=== PATIENT | male | born 1975 | race Caucasian/White ===

== ENCOUNTER 2020-02-11 08:36 | Outpatient (CLI) | payer OTHER, SELFPAY ==
--- NOTE | ~2020-02-11 | XR_ITS ---
EXAMINATION: XR wrist RT min 3V DATE: 02/11/2020 08:54 INDICATION: Right wrist pain. TECHNIQUE: 3 views of right wrist were obtained. COMPARISON: None. FINDINGS: Bone alignment is normal. No fracture. Joint spaces are well maintained. IMPRESSION: 1. Normal right wrist. Reviewed, dictated and finalized at location B. INE PRINTER IMPRESSION: 1. Normal right wrist.
== END 2020-02-11 08:37 | disposition home or self-care (01) ==
LOC: CHSLAB 08:37
PROVIDERS: PCP Family Medicine; Visit Provider Orthopaedic Surgery
DX: M25.531 Pain in right wrist (principal)
CPT/HCPCS: 73110

== ENCOUNTER 2020-02-20 07:22 | Outpatient (CLI) | payer OTHER, SELFPAY ==
--- NOTE | ~2020-02-20 | MR_ITS ---
EXAMINATION: MR wrist RT wo/w con DATE: 02/20/2020 08:48 INDICATION: Painful lump at the volar/radial aspect of the right wrist. TECHNIQUE: Magnetic resonance imaging (MRI) of the right wrist was performed without intravenous cont rast. Sequences performed include axial, sagittal and coronal T1-weighted FSE and T2-weighted FS FSE, axial T1-weighted FS FSE and postcontrast axial and coronal T1-weighted FS FSE. COMPARISON: None FINDINGS: Intrinsic ligaments: The scapholunate and lunotriquetral ligaments are normal. Triangular fibrocartilage complex (TFCC): The triangular fibrocartilage including its foveal and styloid attachments as well as the dorsal and volar radioulnar ligaments are normal. The ulnar collateral ligament, ulnotriquetral ligament and men iscal homologue are normal. The extensor carpi ulnaris tendon sheath is normal. Extensor wrist: Mild tendinopathy and longitudinal split tearing of the extensor carpi ulnaris tendon at the level of the ECU groove. Extensor tendons of the wrist are otherwise normal. No tenosynovitis. Flexor wrist: The flexor tendons of the wrist are normal. No abnormality in the carpal tunnel with normal median n erve. Guyon's canal: Guyon's canal including the ulnar nerve and artery are normal. Bones/other: Normal marrow signal. No fracture, erosions, avascular necrosis or abnormal marrow replacing process. Mild osteoarthritis at the triscaphe joint. There is somewhat tetrahedral shaped lobular fluid colle ction likely a ganglion cyst situated between the radial margin of the scaphoid, the distal palmar ma rgin of the radial styloid process, the extensor tendons of the first dorsal compartment and the flex or carpi radialis tendon. The lesion measures approximately 2.4 cm proximal to distal, 2.0 cm dorsal palmar and 1.5 cm medial collateral with thin peripheral rim of enhancing synovitis and with at least 5 ovoid low signal intensity likely noncalcified loose bodies, the largest measuring up to 9 x 5 mm. No other abnormally enhancing lesions identified. IMPRESSION: 1. Several noncalcified loose bodies within a 2.4 x 2.0 x 1.5 cm ganglion cyst at the palmar/radial a spect of the wrist. Reviewed, dictated and finalized at location H. OUND WORKER IMPRESSION: 1. Several noncalcified loose bodies within a 2.4 x 2.0 x 1.5 cm ganglion cyst at the palmar/radial aspect of the wrist.
== END 2020-02-20 07:23 | disposition home or self-care (01) ==
PROVIDERS: PCP Family Medicine; Visit Provider Orthopaedic Surgery
DX: R22.31 Localized swelling, mass and lump, right upper limb (principal)
CPT/HCPCS: 73223; A9577

== ENCOUNTER 2020-03-01 01:00 | Outpatient (CLI) | payer OTHER, SELFPAY ==
[2020-03-01 18:31] LABS: SARS-CoV-2 RNA PCR Negative
== END 2020-03-01 01:01 | disposition home or self-care (01) ==
LOC: ANHCOVIDDT 01:01
PROVIDERS: PCP Family Medicine; Visit Provider Orthopaedic Surgery
DX: Z01.812 Encounter for preprocedural laboratory examination (principal); Z20.828 Contact with and (suspected) exposure to other viral communicable diseases
CPT/HCPCS: 87635; C9803; U0003

== ENCOUNTER 2020-03-03 15:11 | Outpatient (CLI) | payer OTHER, SELFPAY ==
--- NOTE | 2020-03-03 15:14 | ECG_ITS ---
Measurements Intervals [place] Rate: 77 P: 44 WI: 136 QRS: 26 QRSD: 93 T: 33 QT: 342 QTc: 389 Interpretive Statements SINUS RHYTHM VOLTAGE CRITERIA FOR LVH BORDERLINE ECG Electronically Signed On 03-03-2020 15:35:21 MEDIA SPECIALIST by Alexandro Valdes D.O.
== END 2020-03-03 15:12 | disposition home or self-care (01) ==
LOC: ANHSURGERY 15:14
PROVIDERS: PCP Family Medicine; Visit Provider Orthopaedic Surgery
DX: Z01.810 Encounter for preprocedural cardiovascular examination (principal); E78.00 Pure hypercholesterolemia, unspecified
CPT/HCPCS: 93005

== ENCOUNTER 2020-03-05 02:21 | Day surgery (SDC) | payer OTHER, SELFPAY ==
[2020-03-03 08:34] VITALS: BMI 34.8
--- NOTE | 2020-03-03 12:24 | PM.IMHP ---
H&P: HPI History of Present Illness Date/Time: 03/03/20 12:24 Chief complaint: Ganglion Cyst Right Wrist Narrative: Julio César Grijalva is a 44 year old male with mass right wrist. Previously excised has now returned. Painful with use. MRI shows cyst with loose bodies. Review of Systems Constitutional: Constitutional: Denies fever(s) Eyes: Eyes: Denies blurry vision ENT: Reports Normal hearing present Cardiovascular: Cardiovascular: Denies chest pain and Denies dyspnea Respiratory: Respiratory: Denies dyspnea and Denies wheezing Gastrointestinal: Gastrointestinal: Denies abdominal pain Genitourinary: Genitourinary: Denies urinary urgency Musculoskeletal: Musculoskeletal: Reports as per HPI and Denies numbness Integumentary/Breasts: Skin/Breast: Denies changing lesions and Denies sores Neurologic: Reports Normal hearing present, Denies behavioral changes, Denies confusion, Denies numbness and Denies convulsions Psychiatric: Psychiatric: Denies behavioral changes, Denies confusion and Denies hallucinations Endocrine: Endocrine: Denies heat intolerance Hematologic/Lymphatic: Hematologic/Lymphatic: Denies easy bleeding Allergic/Immunologic: Allergic/Immunologic: Denies wheezing PMFSH Past Medical History Medical History Mass of right wrist Social History Social History Smoking status: Never smoker Alcohol intake: current Drinks per week: 4 Spiritual care concerns: No Meds Home Medications and Allergies Home Medications Medication Instructions Recorded Confirmed Type atorvastatin 80 mg PO QAM 02/11/20 03/03/20 History lansoprazole 30 mg PO QAM 02/11/20 03/03/20 History calcium citrate 200 mg PO DAILY 03/03/20 03/03/20 History mecobalamin (vitamin B12) 1,000 mcg PO DAILY 03/03/20 03/03/20 History multivitamin,bs-yypx-[id number] 1 tablet PO DAILY 03/03/20 03/03/20 History [Complete Multivitamin] Allergies Allergy/AdvReac Type Severity Reaction Status Date / Time Penicillins Allergy Unknown Rash Verified 03/03/20 08:15 Exam Const: General: healthy appearing; No in distress or confusion Orientation/consciousness: oriented to person, oriented to place, oriented to time and No confusion HENMT: Head: normal to inspection, normocephalic and atraumatic Eyes: Conjunctivae: conjunctivae normal Sclera: sclerae normal Neck: Neck: supple and nontender Resp: Effort & Inspection: normal respiratory effort and no audible wheezes Cardio: Rate: regular rate Rhythm: regular rhythm Skin: General skin exam: no rashes or lesions noted Neuro: General: oriented to person, oriented to place, oriented to time and No confusion Extrem: Right upper extremity: normal to inspection, shoulder/upper arm no tenderness and no swelling, elbow/forearm normal ROM; no tenderness and no swelling, wrist abnormal to inspection (3 cm mass volar radial, tender to palp), tenderness of the distal radius and of the dorsal wrist, swelling (moderate) of the dorsal wrist and abnormal ROM pain with active ROM during with extension and with flexion and pain with passive ROM during with extension and with flexion (Ext 30, Flex 30, Pro 40, Sup 35) and Extremity exam: right hand neuromotor exam normal, neuromotor exam abnormal wrist extension abnormal limited by pain, neurosensory exam normal radial nerve sensory function normal, ulnar nerve sensory function normal, median nerve sensory function normal and digital nerve sensory function normal, tendon exam normal of all digits and vascular exam radial pulse present and normal capillary refill Left upper extremity: normal to inspection, shoulder/upper arm no tenderness and no swelling, elbow/forearm no tenderness and no swelling, wrist normal ROM and radial pulse present 2+; no tenderness and no swelling and hand normal capillary refill, neuromotor exam normal, neurosensory exam no
[2020-03-05 09:00] VITALS: BP 140/98; PULSE 83; RESP 20; TEMP 36.5; O2SAT 100
[2020-03-05] MEDS: ACETAMINOPHEN 500 MG TABLET 1000 MG PO (09:40)
[2020-03-05] MEDS: KETOROLAC 15 MG/ML VIAL (*BKC) IV PUSH (09:40)
[2020-03-05] MEDS: LACTATED RINGERS 1,000 ML 30 ML IV CONT ×2 (09:50→13:23)
--- NOTE | 2020-03-05 09:59 | P.PNAN_ITS ---
Anes - Initial Pre Proc Eval Procedure: Operation Date: 03/05/20 11:00 Proposed Procedures p Excision Ganglion Cyst Right Wrist - Akbar Avila MD Date/Time: 03/05/20 09:59 Surgeon: Akbar Avila MD Pre Op Diagnosis: Ganglion Cyst Right Wrist Patient Data Age: 44 Gender: M Height: 5 ft 11 in Weight: 113.4 kg Allergies Allergy/AdvReac Type Severity Reaction Status Date / Time Penicillins Allergy Severe Rash Verified 03/05/20 09:09 Home Medications Medication Instructions Recorded Confirmed Type atorvastatin 80 mg PO QAM 02/11/20 03/03/20 History lansoprazole 30 mg PO QAM 02/11/20 03/03/20 History calcium citrate 200 mg PO DAILY 03/03/20 03/03/20 History mecobalamin (vitamin B12) 1,000 mcg PO DAILY 03/03/20 03/03/20 History multivitamin,xj-xail-ccskrypi 1 tablet PO DAILY 03/03/20 03/03/20 History [Complete Multivitamin] Patient hx anesthesia problems: none Family hx anesthesia problems: none [facility] Past Medical History Medical History Mass of right wrist Surgical History Surgical History (Updated 03/05/20 @ 09:59 by José Ga MD) History of gastric surgery Social History Social History Smoking status: Never smoker Alcohol intake: current Drinks per week: 4 Living arrangements: with family Spiritual care concerns: No Anes - Eval Final PreProcedure Day of Procedure 03/05/20 09:59 Patient weight: obese Heart: regular rate and rhythm Lungs: clear to auscultation Airway: Mallampati scale class II Neurological: alert and oriented Last oral intake: >/= 8 hours ASA classification: III Emergent: no Anesthetic plan: proceed Anesthesia type and monitoring: general GIVS and standard monitoring Informed Consent: The patient's anesthetic plan and its attendant risks and benefits were discussed with the patient/family/POA. Questions were solicited and answers provided to the satisfaction of the patient/family/POA.
--- NOTE | 2020-03-05 11:25 | WPDHPUPDATE1 ---
History and Physical Update Update Date/Time: 03/05/20 11:25 History and Physical has been reviewed, including an updated exam of the patient. There are NO changes in the patient's condition. Covid test negative. Risks, benefits, and alternatives have been discussed and questions answered. Patient agrees to proceed with procedure.
--- NOTE | 2020-03-05 11:48 | SUR.PREOP ---
1045 pt ambulated to bathroom w/minimal assistance 1115 update provided r/t delay w/surgeon/acknowledges understanding and denies need to notify family
[2020-03-05] MEDS: CLINDAMYCIN 900 MG/D5W 50 ML 900 MG/50 ML PIGGYBACK 50 MG IVPB (12:04)
[2020-03-05] MEDS: BUPIVACAINE HCL 0.5% PF 30 ML VIAL INFILTRATE (12:24)
[2020-03-05 13:23] VITALS: BP 130/76; PULSE 76; RESP 10; O2SAT 100
--- NOTE | 2020-03-05 13:26 | P.OP_ITS ---
Procedure Note - Detailed Date of procedure: 03/05/20 Pre-op diagnosis: Ganglion Cyst Right Wrist Post-op diagnosis: same Procedure performed: Excision ganglion cyst right wrist Description of procedure: Indications: Patient is a 44-year-old with a recurrent mass on the volar radial aspect of the right wrist. Patient had previous excision 20 years ago. MRI demonstrates cystic structure with loose bodies. Patient presents now for operative removal. What was done: Patient identified in the preoperative holding. Informed consent given. Operative extremity marked. Patient received intravenous antibiotics. Patient brought to the operating room where underwent general anesthetic by anesthesia team. Positioned supine on operating room table. Time-out performed confirming the patient, site of the surgery and the plan. Right arm prepped draped usual sterile surgical fashion using ChloraPrep skin solution. Esmarch bandage used to exsanguinate the hand and wrist and then secured at the forearm for a tourniquet. Previous incision was marked over the volar radius and wrist which was approximately over the flexor carpi radialis. Local anesthetic with 0.5% Marcaine plain. Incision then made with 15 blade knife. Hemostasis controlled electrocautery. Dissection carried down through the fascia. The flexor carpi radialis tendon was identified and retracted ulnarward. This allowed I identification of the cyst. The cyst was freed up circumferentially using tenotomy and blunt dissection. On the deep radial aspect there was noted to be adherence to the radial artery. The radial artery was carefully freed up off of the mass. The mass then was dissected deep which was adherent to the radial scaphoid capsule. This was freed up off the capsule and passed off as specimen. Tourniquet was released and branch of the radial artery was noted to be bleeding. This was repaired with 5 0 Prolene suture. Other bleeding points were coagulated with bipolar cautery. Wound was then thoroughly irrigated with antibiotic solution. Two Vicryl used to repair the radial scaphoid capsule. Three Monocryl for subcutaneous tissue and 2 0 Quill for the skin. Skin glue was then applied. Sterile dressing applied. The patient was then woken from anesthesia, extubated and taken to the recovery room in stable condition. All sponge, needle, instrument counts were correct at the end of the case. Implants: None Anesthesia: MAC and local Surgeon: Akbar Avila MD Classification Case Manager: 1st dental assistant medical assistant Estimated blood loss (mL): 10 Tourniquet time (min): 25 Drains: No Packing: No Pathology: yes (Volar radial mass right wrist) Complications: None Condition: stable Disposition: PACU
[2020-03-05 13:53] VITALS: BP 138/85; PULSE 71; RESP 18; O2SAT 99
[2020-03-05] MEDS: oxyCODONE HCL (*CRX) 5 MG TAB IR PO (14:18)
[2020-03-05 14:28] VITALS: BP 134/83; PULSE 65; RESP 18
== END 2020-03-05 14:39 | disposition home or self-care (01) ==
PROVIDERS: PCP Family Medicine; Visit Provider Orthopaedic Surgery
PROC: (CPT 25112; principal; 2020-03-05 11:00)
DX: M12.231 Villonodular synovitis (pigmented), right wrist (principal); Z98.84 Bariatric surgery status; E66.9 Obesity, unspecified; Z68.37 Body mass index [BMI] 37.0-37.9, adult
CPT/HCPCS: 25112; 88305; A9270; J1885; J2250; J2405; J2704; J3010; J7120

== ENCOUNTER 2020-03-21 14:28 | Outpatient (CLI) | payer OTHER, SELFPAY ==
[2020-03-21 15:38] LABS: Influenza Control Valid (Valid)
[2020-03-22 18:58] LABS: SARS-CoV-2 RNA PCR Positive
== END 2020-03-21 14:29 | disposition home or self-care (01) ==
LOC: CHSLAB 14:32
PROVIDERS: PCP Family Medicine; Visit Provider Family Medicine
DX: U07.1 COVID-19 (principal); R05 Cough
CPT/HCPCS: 87635; 87804; C9803; U0003

== ENCOUNTER 2021-12-15 00:59 | Day surgery (SDC) | payer OTHER, SELFPAY ==
[2021-12-01 14:10] VITALS: BMI 33.9
--- NOTE | 2021-12-14 14:01 | P.PNAN_ITS ---
Anes - Initial Pre Proc Eval Procedure: Operation Date: 12/15/21 09:00 Proposed Procedures p Screening Colonoscopy - Anand Murcia MD Date/Time: 12/14/21 14:01 Surgeon: Anand Murcia MD Pre Op Diagnosis: neoplasm screening Patient Data Age: 46 Gender: M Height: 1.83 m Weight: 113.5 kg Allergies Allergy/AdvReac Type Severity Reaction Status Date / Time Penicillins Allergy Severe Rash Verified 12/15/21 07:49 Home Medications Medication Instructions Recorded Confirmed Type atorvastatin [Lipitor] 80 mg PO QAM 02/11/20 12/01/21 History lansoprazole 30 mg PO QAM 02/11/20 12/01/21 History calcium citrate 200 mg (950 mg) 200 mg PO DAILY 03/03/20 12/01/21 History tablet mecobalamin (vitamin B12) 1,000 1,000 mcg PO DAILY 03/03/20 12/01/21 History mcg chewable tablet multivitamin,lq-geug-dljirdav 1 tablet PO DAILY 03/03/20 12/01/21 History (Complete Multivitamin tablet) sodium,potassium,mag sulfates 17.5 See Rx Instructions PO .COMPLEX 11/03/21 12/01/21 Rx gram-3.13 gram-1.6 gram oral soln #354 mL (Suprep Bowel Prep Kit) Patient hx anesthesia problems: none Family hx anesthesia problems: none Results Review: All pre-operative results and documents have been reviewed as part of the pre- operative evaluation. [facility] Past Medical History Medical History (Updated 12/15/21 @ 08:05 by Anand Murcia MD) De Quervain's disease (radial styloid tenosynovitis) Encounter for orthopedic follow-up care GERD (gastroesophageal reflux disease) Hypertension Mass of right wrist Right wrist pain Surgical History Surgical History (Updated 12/14/21 @ 14:02 by Froylan Mercado DO) History of gastric surgery S/P excision of vocal cord nodule Social History Social History Smoking status: Former smoker Alcohol intake: current Drinks per week: 6 Substance use type: does not use Living arrangements: with family Spiritual care concerns: No Anes - Eval Final PreProcedure Day of Procedure 12/14/21 14:01 Patient weight: obese Heart: regular rate and rhythm Lungs: clear to auscultation Airway: Mallampati scale class II Neurological: alert and oriented Last oral intake: >/= 8 hours ASA classification: III Emergent: no Anesthetic plan: proceed Anesthesia type and monitoring: general GIVS and standard monitoring Results Review: All pre-operative results and documents have been reviewed as part of the pre- operative evaluation. Informed Consent: The patient's anesthetic plan and its attendant risks and benefits were discussed with the patient/family/POA. Questions were solicited and answers provided to the satisfaction of the patient/family/POA.
[2021-12-15 07:51] VITALS: BP 148/99; PULSE 76; RESP 16; TEMP 36.2; O2SAT 99
[2021-12-15] MEDS: LACTATED RINGERS 1,000 ML 150 ML IV CONT (07:57)
--- NOTE | 2021-12-15 08:04 | PM.IMHP ---
H&P: HPI History of Present Illness Date/Time: 12/15/21 08:04 Chief Complaint: Neoplasia screening. Narrative: This is 46-year-old white male patient presents for neoplasia screening colonoscopy. Patient's current weight appetite and bowel movements are normal. He denies abdominal pain. He has had no bleeding. Family history noncontributory. Patient presents today for screening colonoscopy. Review of Systems Review of Systems: Review of systems noncontributory. [facility] Past Medical History Medical History (Updated 12/15/21 @ 08:05 by Anand Murcia MD) De Quervain's disease (radial styloid tenosynovitis) Encounter for orthopedic follow-up care GERD (gastroesophageal reflux disease) Hypertension Mass of right wrist Right wrist pain Surgical History Surgical History (Updated 12/14/21 @ 14:02 by Froylan Mercdao DO) History of gastric surgery S/P excision of vocal cord nodule Social History Social History Smoking status: Former smoker Alcohol intake: current Drinks per week: 6 Substance use type: does not use Living arrangements: with family Spiritual care concerns: No Meds Home Medications and Allergies Home Medications Medication Instructions Recorded Confirmed Type atorvastatin [Lipitor] 80 mg PO QAM 02/11/20 12/01/21 History lansoprazole 30 mg PO QAM 02/11/20 12/01/21 History calcium citrate 200 mg (950 mg) 200 mg PO DAILY 03/03/20 12/01/21 History tablet mecobalamin (vitamin B12) 1,000 1,000 mcg PO DAILY 03/03/20 12/01/21 History mcg chewable tablet multivitamin,fu-gipr-xastzmvg 1 tablet PO DAILY 03/03/20 12/01/21 History (Complete Multivitamin tablet) sodium,potassium,mag sulfates 17.5 See Rx Instructions PO .COMPLEX 11/03/21 12/01/21 Rx gram-3.13 gram-1.6 gram oral soln #354 mL (Suprep Bowel Prep Kit) Allergies Allergy/AdvReac Type Severity Reaction Status Date / Time Penicillins Allergy Severe Rash Verified 12/15/21 07:49 Vital Signs Vital Signs - 24 hr 12/15/21 07:51 Temperature 97.1 F L Pulse Rate 76 Respiratory Rate 16 Blood Pressure 148/99 H Pulse Oximetry 99 Oxygen Delivery Room Air Exam Narrative: Physical exam reveals patient to be alert. Vital signs stable. HEENT exam is unremarkable. Patient is anicteric. Lungs are clear to auscultation and percussion. Heart is without murmur or extra sounds. Abdominal exam bowel sounds are present soft nontender with no organomegaly. Digital external rectal exam is normal. Assessment and Plan Assessment and plan (1) Encounter for screening colonoscopy: Code(s): Z12.11 - Encounter for screening for malignant neoplasm of colon Status: Acute Assessment and Plan: Patient presents today for screening colonoscopy. He appears to be at average risk for colon polyps. Further recommendations may be given after endoscopy.
--- NOTE | 2021-12-15 08:35 | P.PNAN_ITS ---
Anes - Eval Final PreProcedure Day of Procedure 12/15/21 08:35 Results Review: All pre-operative results and documents have been reviewed as part of the pre- operative evaluation. Informed Consent: The patient's anesthetic plan and its attendant risks and benefits were discussed with the patient/family/POA. Questions were solicited and answers provided to the satisfaction of the patient/family/POA.
[2021-12-15 08:54] VITALS: BP 135/73; PULSE 71; RESP 24; O2SAT 96
[2021-12-15 09:04] VITALS: BP 142/87; PULSE 72; RESP 18; O2SAT 98
[2021-12-15 09:14] VITALS: BP 148/93; PULSE 68; RESP 19; O2SAT 100
== END 2021-12-15 09:18 | disposition home or self-care (01) ==
PROVIDERS: PCP Family Medicine; Visit Provider Internal Medicine Gastroenterology
PROC: 0DJD8ZZ Inspection of Lower Intestinal Tract, Via Natural or Artificial Opening Endoscopic (ICD-10-PCS; CPT 45378; principal; 2021-12-15 09:00)
DX: Z12.11 Encounter for screening for malignant neoplasm of colon (principal); K64.8 Other hemorrhoids; K57.30 Diverticulosis of large intestine without perforation or abscess without bleeding; M65.4 Radial styloid tenosynovitis [de Quervain]; K21.9 Gastro-esophageal reflux disease without esophagitis; I10 Essential (primary) hypertension; Z87.891 Personal history of nicotine dependence; E66.9 Obesity, unspecified; Z68.34 Body mass index [BMI] 34.0-34.9, adult
CPT/HCPCS: 45378; J2001; J2704; J7120

== ENCOUNTER 2022-02-24 18:46 | Emergency (ER) | payer OTHER, SELFPAY ==
[2022-02-24 18:50] VITALS: BP 160/102; PULSE 82; RESP 16; TEMP 36.5; O2SAT 99
--- NOTE | 2022-02-24 18:54 | ED.UPPEXIN ---
HPI - Extremity Injury (Upper) General Chief Complaint: Extremity Injury, Upper Stated Complaint: left hand index finger injury Time Seen by Provider: 02/24/22 18:54 Source: patient Mode of arrival: ambulatory History of Present Illness HPI narrative: is a 46-year-old male presents to the ER with a 2 cm laceration over his left index finger DI P over the dorsal aspect. Profuse bleeding noted. The patient is up-to-date on tetanus immunization. MD complaint: injury to: left and finger ( D IP of index finger.) Onset (ago): hour(s) ( 30 minutes ago.) Other Extremity Injury: Left: fingers Handedness: right Place: home Severity: mild Relieving factors: none Exacerbating factors: none Context: laceration Associated symptoms: denies other symptoms Related Data Home Medications Medication Instructions Recorded Confirmed atorvastatin [Lipitor] 80 mg PO QAM 02/11/20 12/01/21 lansoprazole 30 mg PO QAM 02/11/20 12/01/21 calcium citrate 200 mg (950 mg) 200 mg PO DAILY 03/03/20 12/01/21 tablet mecobalamin (vitamin B12) 1,000 1,000 mcg PO DAILY 03/03/20 12/01/21 mcg chewable tablet multivitamin,er-pppf-fjqholfu 1 tablet PO DAILY 03/03/20 12/01/21 (Complete Multivitamin tablet) Allergies Allergy/AdvReac Type Severity Reaction Status Date / Time Penicillins Allergy Severe Rash Verified 02/24/22 18:58 Review of Systems Review of Systems: All systems reviewed & are unremarkable except as noted in HPI and below Constitutional: Constitutional: Reports as per HPI and Reports no additional constitutional complaints Eyes: Eyes: Reports as per HPI and Reports no additional eye complaints ENT: Reports system reviewed and no additional complaints, except as documented and Reports as per HPI Cardiovascular: Cardiovascular: Reports as per HPI and Reports no additional cardiovascular complaints Respiratory: Respiratory: Reports as per HPI and Reports no additional respiratory complaints Gastrointestinal: Gastrointestinal: Reports as per HPI and Reports no additional gastrointestinal complaints Genitourinary: Genitourinary: Reports no additional male genitourinary complaints and Reports as per HPI Musculoskeletal: Musculoskeletal: Reports no additional musculoskeletal complaints and Reports as per HPI Integumentary/Breasts: Comments: 2 cm laceration over the dorsal left index finger DI P distal neurovascular bundle is intact. Neurologic: Reports system reviewed and no additional complaints, except as documented Psychiatric: Psychiatric: Reports no additional psychiatric complaints and Reports as per HPI Endocrine: Endocrine: Reports no additional endocrine complaints and Reports as per HPI Hematologic/Lymphatic: Hematologic/Lymphatic: Reports no additional hematologic/lymphatic complaints and Reports as per HPI Allergic/Immunologic: Allergic/Immunologic: Reports no additional allergic/immunologic complaints and Reports as per HPI [facility] Past Medical History Medical History De Quervain's disease (radial styloid tenosynovitis) Encounter for orthopedic follow-up care GERD (gastroesophageal reflux disease) Hypertension Mass of right wrist Right wrist pain Surgical History Surgical History History of gastric surgery S/P excision of vocal cord nodule Social History Social History Smoking status: Former smoker Alcohol intake: current Drinks per week: 6 Substance use type: does not use Spiritual care concerns: No Exam Const: General: healthy appearing and no acute distress Nutritional Appearance: well nourished Orientation/consciousness: patient oriented x3 Limitations: no limitations HENMT: Head: normal to inspection Ears: external ears normal Face/Nose/Sinus: Normal external nose present Face and sinus: normal facial exam Mouth
[2022-02-24] MEDS: LIDOCAINE HCL 1% LOCAL INJ 10 ML VIAL 4 ML INFILTRATE (19:19)
[2022-02-24 19:34] VITALS: BP 148/88; PULSE 87; RESP 20; TEMP 36.6; O2SAT 98
== END 2022-02-24 19:36 | disposition home or self-care (01) ==
PROVIDERS: Emergency Provider Internal Medicine Critical Care Medicine; PCP Family Medicine
DX: S61.211A Laceration without foreign body of left index finger without damage to nail, initial encounter (principal); W45.8XXA Other foreign body or object entering through skin, initial encounter
CPT/HCPCS: 12001; 99282

== ENCOUNTER 2023-11-26 07:51 | Outpatient (CLI) | payer OTHER, SELFPAY ==
[2023-11-26 08:02] LABS: Hemoglobin 14.5 g/dL (14.0-18.0); Mean Corpuscular HGB Conc 36.3 g/dL (32-36); Mean Corpuscular Hemoglobin 32.1 pg (27.0-31.0); Mean Corpuscular Volume 88.5 fL (78.0-102.0); Mean Platelet Volume 8.2 fl (8.7-11.0); Platelet Count Result 178 K/mm3 (150-420); Red Blood Count 4.52 M/mm3 (4.70-6.10); White Blood Count 4.4 K/mm3 (4.8-10.8)
[2023-11-26 08:40] LABS: Alanine Aminotransferase 32 U/L (16-63); Albumin Level 3.9 g/dL (3.4-5.0); Alkaline Phosphatase 56 U/L (46-116); Anion Gap 7 mmol/L (4-12); Aspartate Amino Transferase 18 U/L (15-37); Bilirubin,Total 0.5 mg/dL (0.00-1.00); Blood Urea Nitrogen 15 mg/dL (7-18); Carbon Dioxide 29 mmol/L (21-32); Chloride 106 mmol/L (98-108); Cholesterol 203 mg/dL (0-200); Estimated Glomerular Filt Rate > 60; Glucose 95 mg/dL (70-99); HDL Direct 81 mg/dL (40-60); LDL Cholesterol Calculated 102 mg/dL (<130); Osmolality Calculated 294 mOsm/kg (285-295); Potassium 4.2 mmol/L (3.5-5.1); Sodium 142 mmol/L (136-145); Thyroid Stimulating Hormone 1.58 uIU/mL (0.36-3.74); Total Protein 6.9 g/dL (6.4-8.2); Triglycerides 99 mg/dL (0-150)
[2023-11-26 12:54] LABS: MALB Creatinine Ratio 7.8 mg/g (0-30); Microalbumin Urine Random < 13.0 mg/L
== END 2023-11-26 07:52 | disposition home or self-care (01) ==
LOC: CHSLAB 07:53
PROVIDERS: PCP Family Medicine; Visit Provider Family Medicine
DX: I10 Essential (primary) hypertension (principal); E78.2 Mixed hyperlipidemia
CPT/HCPCS: 36415; 80053; 80061; 82043; 84443; 85027

== ENCOUNTER 2023-12-18 20:46 | Emergency (ER) | payer OTHER, SELFPAY ==
[2023-12-18] VITALS (13 sets, daily range): BP systolic 136–165; BP diastolic 87–108; PULSE 84–101; RESP 13–22; TEMP 36.2; O2SAT 95–98
--- NOTE | ~2023-12-18 | CT_ITS ---
CT brain wo con Ordering provider: Marcio Evans MD History: 48 years Male with . headache. . Comparison: May 14, 2017 Technique: CT of the head without contrast. Radiation reduction technique utilized. DLP is 605.33 mGy-cm. FINDINGS: BRAIN PARENCHYMA AND CSF SPACES: No midline shift, mass effect or hemorrhage. The brain parenchyma a nd CSF spaces are otherwise normal. VISUALIZED PARANASAL SINUSES: Well aerated. MASTOIDS: Well aerated. BONES: The bones appear intact. SOFT TISSUES: Visualized nasopharynx is normal. Superficial soft tissues are normal. IMPRESSION: No acute intracranial findings. Reviewed, dictated and finalized at location A.
--- NOTE | 2023-12-18 20:55 | ED.GENADULT ---
HPI - General Adult General Chief complaint: Headache Stated complaint: elevated blood pressure Time Seen by Provider: 12/18/23 20:55 Source: patient Mode of arrival: ambulatory Limitations: no limitations History of Present Illness HPI narrative: 48-year-old white male complains of high blood pressure and feeling when he is in a brain fog and having a headache. Took some aspirin at noon time. He has been checking his blood pressure for the last couple days on the was 205/101, 206/104, 260/155. On the yesterday was 233/102, 179/88, 154/80, and today it was 209/124, 132/70, 129/36, 157/105, 145/95, 238/147. Says he is on losartan and he has not missed any medicine he drinks a case of beer a week he had 5 beers today past medical history significant for hypertension weight loss surgery for which he lost 100 lb gain back 25 and most recently the last 4-5 months he has gained another 20 lb. He has a history of hypercholesterolemia. He has felt a little lightheaded. He describes his brain fog like is a few drinks some drinks but did not drink drinks. Like when he had COVID. Denies any chest pain problems walking talking seeing or hearing weakness or numbness swelling lumps or bumps rash or itching bleeding or bruising nausea vomiting shortness of breath chest pain back pain blurred vision or double vision. Denies any other complaints Related Data Home Medications Medication Instructions Recorded Confirmed atorvastatin [Lipitor] 80 mg PO QAM 02/11/20 12/18/23 calcium citrate 200 mg (950 mg) 200 mg PO DAILY 03/03/20 12/18/23 tablet mecobalamin (vitamin B12) 1,000 1,000 mcg PO DAILY 03/03/20 12/18/23 mcg chewable tablet multivitamin,xl-vtez-vcucvcyn 1 tablet PO DAILY 03/03/20 12/18/23 (Complete Multivitamin tablet) lansoprazole 30 mg capsule,delayed 30 mg PO DAILY 12/18/23 12/18/23 release losartan 50 mg-hydrochlorothiazide 1 tablet PO DAILY 12/18/23 12/18/23 12.5 mg tablet semaglutide (weight loss) 1.7 1.7 mg subcut WEEKLY 12/18/23 12/18/23 mg/0.75 mL subcutaneous pen injector (Wegovy) Allergies Allergy/AdvReac Type Severity Reaction Status Date / Time Penicillins Allergy Severe Rash Verified 12/18/23 21:02 Review of Systems Review of Systems: All systems reviewed & are unremarkable except as noted in HPI and below PMFSH Past Medical History Medical History De Quervain's disease (radial styloid tenosynovitis) Encounter for orthopedic follow-up care GERD (gastroesophageal reflux disease) Hypertension Mass of right wrist Right wrist pain Surgical History Surgical History History of gastric surgery S/P excision of vocal cord nodule Social History Social History Smoking status: Former smoker Alcohol intake: current Drinks per week: 6 Substance use type: does not use Living arrangements: with family Spiritual care concerns: No Exam Narrative: White male patient with no apparent distress.? Head normocephalic, atraumatic.? Eyes conjunctiva pink sclera nonicteric.? Extraocular movements are intact.? Ears externally normal.? Oropharynx is clear with moist mucous membranes without exudates.? Neck is supple nontender no lymphadenopathy.? Back is nontender.? Lungs are clear.? Heart is regular rate and rhythm without murmurs gallops or rubs.? Chest wall nontender. Abdomen is soft and nontender no hepatosplenomegaly or masses no CVA tenderness no abdominal bruits.? Extremities no cyanosis clubbing or edema.? Skin is warm and dry without rashes or lesions.? Neurological patient is alert and oriented x4.? Motor and sensory grossly intact.? Gait is normal. Course Vital Signs Vital signs: Vital Signs Pulse Rate 90 12/18/23 20:48 Respiratory Rate 13 12/18/23 20:48 Pulse Oximetry 97 12/18/23 20:48
--- NOTE | 2023-12-18 21:02 | ECG_ITS ---
Test Date: 2023-12-18 21:00:02 Measurements Intervals [place] Rate: 87 P: 57 WI: 165 QRS: 20 QRSD: 98 T: 38 QT: 354 QTc: 428 Interpretive Statements SINUS RHYTHM BASELINE ARTIFACT- I, III NORMAL ECG No previous ECG available for comparison Electronically Signed On 12-19-2023 06:27:10 CDT by Alexandro Valdes D.O.
[2023-12-18] MEDS: ACETAMINOPHEN 500 MG TABLET 1000 MG PO (21:14)
[2023-12-18 21:15] LABS: Hematocrit 39.2 % (40.0-54.0); Mean Corpuscular HGB Conc 35.7 g/dL (32-36); Mean Corpuscular Volume 89.5 fL (78.0-102.0); Mean Platelet Volume 8.4 fl (8.7-11.0); Platelet Count Result 189 K/mm3 (150-420); Red Blood Count 4.38 M/mm3 (4.70-6.10); Red Cell Distribution Width 12.3 % (11.6-14.4); White Blood Count 6.1 K/mm3 (4.8-10.8)
[2023-12-18 21:33] LABS: Alanine Aminotransferase 33 U/L (16-63); Albumin Level 3.8 g/dL (3.4-5.0); Alkaline Phosphatase 98 U/L (46-116); Anion Gap 9 mmol/L (4-12); Aspartate Amino Transferase 23 U/L (15-37); Bilirubin,Total 0.5 mg/dL (0.00-1.00); Blood Urea Nitrogen 16 mg/dL (7-18); Calcium 8.8 mg/dL (8.5-10.1); Carbon Dioxide 29 mmol/L (21-32); Chloride 100 mmol/L (98-108); Estimated CRCL calculation 89 ml/min; Estimated Glomerular Filt Rate > 60; Glucose 107 mg/dL (70-99); Osmolality Calculated 287 mOsm/kg (285-295); Potassium 3.7 mmol/L (3.5-5.1); Sodium 138 mmol/L (136-145); Thyroid Stimulating Hormone 1.74 uIU/mL (0.36-3.74); Total Protein 7.1 g/dL (6.4-8.2)
[2023-12-18 21:42] LABS: Ethanol 146 mg/dL (0-6)
== END 2023-12-18 22:43 | disposition home or self-care (01) ==
PROVIDERS: Emergency Provider Emergency Medicine; PCP Family Medicine
DX: I10 Essential (primary) hypertension (principal); F10.920 Alcohol use, unspecified with intoxication, uncomplicated; Z79.899 Other long term (current) drug therapy; Z87.891 Personal history of nicotine dependence
CPT/HCPCS: 36415; 70450; 80053; 80307; 84443; 85027; 93005; 99284

== ENCOUNTER 2024-01-23 08:33 | Outpatient (CLI) | payer OTHER, SELFPAY ==
[2024-01-23 08:49] LABS: Basophils Absolute Auto 0.04 K/mm3 (0.00-0.10); Basophils Percent Auto 0.9 % (0.0-1.0); Eosinophils Absolute Auto 0.07 K/mm3 (0.02-0.50); Eosinophils Percent Auto 1.6 % (1.0-6.0); Hematocrit 42.1 % (40.0-54.0); Hemoglobin 15.5 g/dL (14.0-18.0); Immature Granulocyte Absolute 0.02 K/mm3 (0.00-0.00); Immature Granulocyte Percent A 0.4 % (0.0-0.0); Lymphocytes Absolute Auto 1.37 K/mm3 (1.10-4.50); Lymphocytes Percent Auto 30.6 % (18.0-42.0); Mean Corpuscular HGB Conc 36.8 g/dL (32-36); Mean Platelet Volume 8.2 fl (8.7-11.0); Monocytes Absolute Auto 0.35 K/mm3 (0.10-0.90); Monocytes Percent Auto 7.8 % (2.0-11.0); Neutrophils Absolute Auto 2.62 K/mm3 (1.70-7.20); Neutrophils Percent Auto 58.7 % (50.0-70.0); Platelet Count Result 210 K/mm3 (150-420); Red Blood Count 4.84 M/mm3 (4.70-6.10); Red Cell Distribution Width 11.9 % (11.6-14.4); White Blood Count 4.5 K/mm3 (4.8-10.8)
== END 2024-01-23 08:34 | disposition home or self-care (01) ==
LOC: CHSLAB 08:35
PROVIDERS: PCP Family Medicine; Visit Provider Family Medicine
DX: D72.819 Decreased white blood cell count, unspecified (principal); Z12.5 Encounter for screening for malignant neoplasm of prostate
CPT/HCPCS: 36415; 84153; 85025; G0103

== ENCOUNTER 2024-08-23 10:04 | Outpatient (CLI) | payer OTHER, SELFPAY ==
--- OUTSIDE RECORDS SUMMARY | 2024-08-23 10:13 | XMS_ITS | Clinical Summary ---
Author Organization [facility] al Address [address] [place] [address] Care Team Providers Care Resource Analyst Name Role Phone Sanket Shafer MD Primary Care Provide r Allergies Active Allergy Reactions Criticality Noted Date Comments Penicillins Hives,Unknown Medium 04/10/2015 Medications lansoprazole (PREVACID) 30 mg capsule take 1 capsule by oral route every day before a meal 0 0 06/05/2014 Active calcium carb,cit-D3-phy tosterl 315-250-200 mg-unit-mg tabletIndicatio ns:qd Active multivitamin (DAILY MULTI-VITAMIN) tabletIndicatio ns:Vitamin Deficiency Prevention,qd Active Active Problems Problem Noted Date Diagnosed Date History of bariatric surgery 10/28/2017 GERD (gastroesophageal reflux disease) 8 Hyperlipidemia 10/28/2017 Benign essential hypertension 04/10/2015 Pure hypercholesterolemia 04/10/2015 Surgical History Surgery Date Site/Laterality Comments SLEEVE GASTROPLASTY VOCAL CORD LATERALIZATION, ENDOSCOPIC APPROACH W/ MLB Medical History Medical History Date Comments Hypertension Hypertension Gastroesophageal reflux disease GERD Morbid obesity (HCC) morbid obes ity Dyslipidemia dyslipidemia dyslipidemia Family History Medical History Relation Name Comments Diabetes Father Family history of diabetes mellitus - (Added by TW Conv) Heart disease Father Family history of cardiac disorder - (Added by TW Conv) Hypertension Father Family history of hypertension - (Added by TW Conv) Obesity Father Family history of obesity - (Added by TW Conv) Substance Abuse Father Family histo ry of substance abuse - (Added by TW Conv) Cancer Mother Family history of malignant neoplasm - (Added by TW Conv) Relation Name Status Comments Father Mother Social History Tobacco Use Types Packs/Day Years Used Date Smoking Tobacco: Former Smokeless Tobacco: Never Alcohol Use Standard Drinks/Week Comments Yes 0 (1 standard drink = 0.6 oz pur e alcohol) Personal Safety Answer Date Recorded Getting School Help Needed Not on file 06/18 Sex and Gender Information Value Date Recorded Sex Assigned at Not on file Legal 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 Gender Identity Not on file Sexual Orientation Not on file Obstetrics History Last Filed Vital Signs Vital Sign [place] Time Taken Comments Blood Pressure 131/96 02/21/2019 2:49 PM PEDIATRIC LPN Pulse 86 02/21/2019 2:49 PM PEDIATRIC LPN Temperature 37.3 C (99.2 F) 02/21/2019 2:49 PM PEDIATRIC LPN Respiratory Rate - - Oxygen Saturation 99% 08/23/2015 8:15 AM CDT Inhaled Oxygen Concentration - - Weight 112.1 kg (247 lb 3.2 oz) 02/21/2019 2:49 PM PEDIATRIC LPN Height 181.6 cm (5' 11.5 ) 02/21/2019 2:49 PM CS T Body Mass Index 34 02/21/2019 2:49 PM PEDIATRIC LPN Plan of Treatment Not on file [facility] [employer] [facility] Care Teams Resource Analyst Relationship Specialty Start Date End Date Sanket Shafer MD [address] [place] [address] PCP - General 07/31/14
--- OUTSIDE RECORDS SUMMARY | 2024-08-23 10:13 | XMS_ITS | Referral Summary ---
Author Organization [facility] al Address [address] [place] [address] Care Team Providers Care Attacher Name Role Phone Sanket Shafer MD Primary [...] Benign essential hypertension 04/10/2015 Pure hypercholesterolemia 04/10/2015 Social History Tobacco Use Types Packs/Day Years Used Date Smoking Tobacco: Former Smokeless Tobacco: Never Alcohol Use Standard Drinks/Week Comments Yes 0 (1 standard drink = 0.6 oz pur e alcohol) Personal Safety Answer Date Recorded Getting School Help Needed Not on file 06/18 Sex and Gender Information Value Date Recorded Sex Assigned at Not on file 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 Gender Identity Not on file Sexual Orientation Not on file Last Filed Vital Signs Vital Sign [place] Time Taken Comments Blood Pressure 131/96 02/21/2019 2:49 PM TESTS SUPERINTENDENT Pulse 86 02/21/2019 2:49 PM TESTS SUPERINTENDENT Temperature 37.3 C (99.2 F) 02/21/2019 2:49 PM TESTS SUPERINTENDENT Respiratory Rate - - Oxygen Saturation 99% 08/23/2015 8:15 AM CDT Inhaled Oxygen Concentration - - Weight 112.1 kg (247 lb 3.2 oz) 02/21/2019 2:49 PM TESTS SUPERINTENDENT Height 181.6 cm (5' 11.5 ) 02/21/2019 2:49 PM CS T Body Mass Index 34 02/21/2019 2:49 PM TESTS SUPERINTENDENT Plan of Treatment Not on file Insurance [facility] Care Teams Attacher Relationship Specialty Start Date End Date Sanket Shafer MD [address] [place] [address] [facility] - General 07/31/14
== END 2024-08-23 10:05 | disposition home or self-care (01) ==
LOC: CHSIMG 10:06
PROVIDERS: PCP Family Medicine; Visit Provider Family Medicine
DX: M25.562 Pain in left knee (principal)
CPT/HCPCS: 73562